=== PATIENT | female | born 1955 | race African-American/Black ===

== ENCOUNTER → 2018-02-21 | Outpatient (CLI) | payer OTHER ==
[2018-02-21 17:02] LABS: Albumin 4.2 g/dL (3.80-4.90); Albumin/Globulin Ratio 1.83 (1.20-2.10); Globulin 2.3 g/dL (2.1-3.7); LDL Cholesterol,Calculated 48.6 mg/dL (0.0-131.0); Potassium 4.3 mmol/L (3.5-5.5); Total Bilirubin 0.4 mg/dL (0.3-1.2); Total Protein 6.5 g/dL (6.2-8.2); VLDL Calculation 22.4 mg/dL (5.00-40.00)
== END | disposition home or self-care (01) ==
LOC: LABWHC1 08:47
PROVIDERS: ATTEND Internal Medicine
DX: E78.5 Hyperlipidemia, unspecified (principal); I10 Essential (primary) hypertension
CPT/HCPCS: 36415; 80053; 80061

== ENCOUNTER → 2021-04-27 | Outpatient (CLI) | payer MEDICARE, OTHER ==
[2021-04-28 00:41] LABS: African American GFR (CKD) 74.1 (60.0-200.0); Anion Gap 12.2 mmol/L (10.00-18.00); Blood Urea Nitrogen 8.4 mg/dL (9.0-27.0); Carbon Dioxide 18.7 mmol/L (20.0-27.5); Non-African American GFR(CKD) 63.9 (60.0-200.0); Potassium 4.4 mmol/L (3.5-5.5)
[2021-04-28 01:04] LABS: HCT 43.6 % (37.2-46.3); HGB 13.9 g/dL (12.0-15.0); MCH 29.6 pg (27.0-32.0); MCHC 31.9 g/dL (32.0-37.0); MCV 92.8 fL (80.0-97.0); Mean Platelet Volume 10.5 fL (9.5-12.2); Platelet Count 418 X 10*3/uL (140-440); RDW 15.2 % (11.5-14.5); WBC 15.26 X 10*3/uL (4.50-10.00)
== END | disposition home or self-care (01) ==
LOC: LABPAT 15:04
PROVIDERS: ATTEND Internal Medicine Cardiovascular Disease
DX: Z01.812 Encounter for preprocedural laboratory examination (principal); R94.39 Abnormal result of other cardiovascular function study
CPT/HCPCS: 36415; 80051; 82565; 84520; 85027

== ENCOUNTER 2021-05-05 06:21 | Day surgery (SDC) | payer MEDICARE, OTHER ==
[2021-05-03 11:29] VITALS: BMI 38.5
[~2021-05-05 06:21] MED LIST: ALPRAZolam 0.25 MG TAB PO PRN; ALPRAZolam 0.5 MG TAB PO PRN; ASPIRIN 325 MG TAB PO STA; ATORVASTATIN 80 MG TAB PO STA; NITROGLYCERIN SL TABS 0.4 MG TAB SUBLINGUAL PRN
[2021-05-05] MEDS ORDERED: SODIUM CHLORIDE 0.9% 1,000 ML IV ONE (06:46)
[2021-05-05] MEDS ORDERED: HEPARIN SODIUM,PORCINE 2,500 UNIT in SODIUM CHLORIDE 0.9% 250 ML IRRIGATION PRN (07:00)
[2021-05-05] MEDS ORDERED: HEPARIN SODIUM,PORCINE 10,000 UNIT in SODIUM CHLORIDE 0.9% 1,000 ML IRRIGATION PRN (07:00)
[2021-05-05] MEDS ORDERED: fentaNYL (PF) 50 MCG/ML 2 ML AMP ONE (07:11)
[2021-05-05 07:18] VITALS: TEMP 99.7
[2021-05-05] MEDS: BENZOCAINE SPRAY 1 CAN MUCOUS MEM ONE ×2 (07:27→07:32)
[2021-05-05] MEDS ORDERED: fentaNYL (PF) 50 MCG/ML 2 ML AMP IVP ONE (07:32)
[2021-05-05] MEDS ORDERED: MIDAZOLAM 2 MG/2 ML VIAL IVP ONE (07:32)
[2021-05-05] MEDS ORDERED: LIDOCAINE 1% INJ 10MG/ML (20 ML MDV) SQ ONE (07:53)
[2021-05-05] MEDS ORDERED: VERAPAMIL SYRINGE (5 MG/10 ML) INTRAARTER ONE (08:04)
[2021-05-05] MEDS ORDERED: HEPARIN SODIUM 1,000 UN/ML (10ML VL) IV ONE (08:05)
[2021-05-05] MEDS ORDERED: IOPAMIDOL-370 125ML BTL INJ ONE (08:14)
[2021-05-05] MEDS ORDERED: IV FLUID CONTINUATION 800 ML IV ONE (08:14)
--- NOTE | 2021-05-05 10:32 | ECHOT ---
TRANSESOPHAGEAL ECHOCARDIOGRAM INDICATION: This is a 66-year-old lady who presented to us with symptoms of shortness of breath, underwent an echocardiogram, stress test and presented to me. She had a reversible perfusion defect involving her anterior wall and moderate mitral regurgitation, due to which she was advised to undergo a transesophageal echo and cardiac catheterization. She was explained risks, benefits and alternatives, understood and accepted. PROCEDURE NOTE: After obtaining informed consent, transesophageal echocardiogram was performed in left lateral position using an Omniplane probe. Local and IV sedation were obtained with 2 mg of Versed and 25 mcg of fentanyl. Color Doppler, 2D and spectral analysis were performed. The patient tolerated the procedure well without any obvious immediate complications. Total sedation time was 8 minutes. FINDINGS: 1. Mitral valve is anatomically normal. There is mild central mitral regurgitation noted. 2. Tricuspid valve shows mild tricuspid regurgitation. 3. Aortic valve is a 3-leaflet valve. There is no evidence of aortic stenosis or regurgitation. 4. Left atrium appears mildly enlarged. 5. Left ventricle has normal size and systolic function. 6. Right atrium and right ventricle appear mildly enlarged. 7. 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 There is no evidence of kolng-cq-qqye shunt. There are mild atherosclerotic changes noted within the aorta. CONCLUSION: Mild mitral regurgitation. Normal LV systolic function. Septum secundum ASD measuring about 1.4 cm. PLAN: Patient will undergo cardiac catheterization. MMODL / IJN: [id number] /
--- NOTE | 2021-05-05 10:38 | CC ---
CARDIAC CATHETERIZATION REPORT INDICATION: Shortness of breath with abnormal stress test. PROCEDURE NOTE: After obtaining informed consent, left heart catheterization and coronary angiogram were performed via the right radial artery. A size 3-1/2 Naseem catheter was used to engage the left coronary. A Camilo catheter was used to engage the right coronary artery. Hemodynamics were obtained with a size 3-1/2 right Naseem. Patient tolerated the procedure well without any obvious immediate complications. She received moderate sedation. Total sedation time was 30 minutes. Using a micropuncture needle, right radial artery access was obtained, and under fluoroscopic guidance catheters and wires were floated into the ascending aorta, where they were exchanged. Five mg of verapamil and 5000 units of heparin were given as per protocol. At the end of the procedure a TR band was applied for hemostasis as per protocol. Adequate oxygen saturations were obtained. FINDINGS: HEMODYNAMICS: Left ventricular end-diastolic pressure is 8 to 10 mm. There is no significant gradient across the aortic valve. LEFT VENTRICULOGRAM: Left ventriculogram was not performed. ANGIOGRAPHIC DATA: Left main coronary artery. Left main coronary artery is a normal-sized vessel and is free of stenosis. It divides into left anterior descending coronary artery and circumflex coronary artery. LAD and its branches, circumflex coronary artery and its branches are free of significant stenosis. Right coronary artery is a large dominant vessel and is free of significant disease. CONCLUSIONS: 1. Normal coronary arteries. 2. Normal left ventricular end-diastolic pressure. PLAN: I reviewed angiographic data with the patient and told her that her stress test is a false-positive stress test. The patient has a septum secundum ASD on the DANIE. Will consider closure of this after discussing this with her in the outpatient setting. MMODL / IJN: [id number] /
[2021-05-05 12:51] VITALS: RESP 16
[2021-05-05] MEDS ORDERED: SODIUM CHLORIDE 0.9% 1,000 ML IV SCH (13:00)
[2021-05-05 13:06] VITALS: BP 113/59; PULSE 74
== END 2021-05-05 13:33 | disposition home or self-care (01) ==
LOC: CATHCVL 06:21
PROVIDERS: ATTEND Internal Medicine Cardiovascular Disease
DX: I08.1 Rheumatic disorders of both mitral and tricuspid valves (principal); Q21.1 Atrial septal defect; R94.39 Abnormal result of other cardiovascular function study; I10 Essential (primary) hypertension; E78.5 Hyperlipidemia, unspecified; Z72.0 Tobacco use; Z88.1 Allergy status to other antibiotic agents; Z88.2 Allergy status to sulfonamides; Z88.8 Allergy status to other drugs, medicaments and biological substances; Z79.899 Other long term (current) drug therapy
CPT/HCPCS: 93312; 93320; 93325; 93458; C1894; J2250; J2001; J3010; J1644; Q9967

== ENCOUNTER → 2021-06-04 | Outpatient (CLI) | payer MEDICARE, OTHER ==
[2021-06-04 14:44] LABS: HCT 43.2 % (37.2-46.3); HGB 13.8 g/dL (12.0-15.0); MCHC 31.9 g/dL (32.0-37.0); MCV 90.8 fL (80.0-97.0); Mean Platelet Volume 10.1 fL (9.5-12.2); NRBC Per 100 WBC 0 /100 WBCS (0.0-0.0); Platelet Count 415 X 10*3/uL (140-440); RBC 4.76 X 10*6/uL (4.10-5.20); RDW 14.6 % (11.5-14.5); WBC 6.79 X 10*3/uL (4.50-10.00)
[2021-06-04 14:54] LABS: African American GFR (CKD) 76.7 (60.0-200.0); Anion Gap 12.7 mmol/L (10.00-18.00); Blood Urea Nitrogen 8.9 mg/dL (9.0-27.0); Carbon Dioxide 20.3 mmol/L (20.0-27.5); Non-African American GFR(CKD) 66.2 (60.0-200.0); Potassium 4.7 mmol/L (3.5-5.5)
[2021-06-05 13:27] LABS: Coronavirus SARS CoV-2 Not Detected (Not Detected)
== END | disposition home or self-care (01) ==
LOC: LABPAT 08:05
PROVIDERS: ATTEND Internal Medicine Interventional Cardiology
DX: Z01.812 Encounter for preprocedural laboratory examination (principal); U07.1 COVID-19; I34.0 Nonrheumatic mitral (valve) insufficiency
CPT/HCPCS: 80051; 82565; 84520; 85027; U0003; U0005

== ENCOUNTER 2021-06-11 11:02 | Day surgery (SDC) | payer MEDICARE, OTHER ==
[2021-06-04 10:20] VITALS: BMI 37.6
[~2021-06-11 11:02] MED LIST changes: -ATORVASTATIN 80 MG TAB PO STA; +CLINDAMYCIN 300 MG in DEXTROSE 5% IN WATER 50 ML IVPB ONE; +HEPARIN SODIUM,PORCINE 10,000 UNIT in SODIUM CHLORIDE 0.9% 1,000 ML IRRIGATION PRN; +HEPARIN SODIUM,PORCINE 2,500 UNIT in SODIUM CHLORIDE 0.9% 250 ML IRRIGATION PRN
[2021-06-11] MEDS: SODIUM CHLORIDE 0.9% 1,000 ML in EMPTY BAG 1 BAG IV SCH ×2 (11:36→20:35)
[2021-06-11] MEDS ORDERED: ASPIRIN 325 MG TAB PO ONE (12:30)
[2021-06-11] MEDS ORDERED: HEPARIN SODIUM 1,000 UN/ML (10ML VL) ONE (13:20)
[2021-06-11] MEDS: CLINDAMYCIN 300 MG in DEXTROSE 5% IN WATER 50 ML IVPB ONE ×4 (13:27→13:33)
[2021-06-11] MEDS ORDERED: IV FLUID CONTINUATION 800 ML IV ONE (13:27)
[2021-06-11] MEDS ORDERED: MIDAZOLAM 2 MG/2 ML VIAL IV ONE (13:28)
[2021-06-11] MEDS ORDERED: LIDOCAINE 1% INJ 10MG/ML (20 ML MDV) SQ ONE (13:28)
[2021-06-11] MEDS ORDERED: fentaNYL (PF) 50 MCG/ML 2 ML AMP ONE (13:34)
[2021-06-11] MEDS ORDERED: HEPARIN SODIUM 1,000 UN/ML (10ML VL) IV ONE (13:38)
[2021-06-11] MEDS: fentaNYL (PF) 50 MCG/ML 2 ML AMP IV ONE ×2 (13:38→14:00)
[2021-06-11] MEDS ORDERED: IOPAMIDOL-370 50ML BTL INJ ONE ×2 (14:06)
[2021-06-11] MEDS ORDERED: CLOPIDOGREL 75 MG TAB ONE (14:12)
[2021-06-11] MEDS ORDERED: CLOPIDOGREL 75 MG TAB PO ONE (14:16)
[2021-06-11] MEDS: SODIUM CHLORIDE 0.9% 1,000 ML IV SCH (14:40)
--- NOTE | 2021-06-11 20:54 | P.PCN ---
Date of Procedure: 06/11/21 Operative Findings: PERCUTANEOUS CLOSURE OF SECONDUM ATRIAL SEPTAL DEFECT (ASD) PERFORMING PHYSICIAN: Delonte Wood MD, [facility] PROCEDURE PERFORMED: 1. Successful percutaneous closure of atrial septal defect (ASD) using 35 mm Amplatzer PFO Occluder with an excellent results and without any residual shunt. 2. Intracardiac echocardiogram imaging. 3. Right atrial angiogram. 4. Ultrasound guided access of the right CFV x2 INDICATION: This is a very pleasant 66-year-old female pt who sees Dr. Monroe. She was diagnosed with right RA and RV enlargement. She underwent transesophageal echocardiogram and that revealed secondum ASD. She was brought today to undergo percutaneous closure of the interatrial septum. APPROACH: Right common femoral vein x2 COMPLICATION: None. LEVEL OF SEDATION: Moderate with sedation length of 46 minutes. PROCEDURE DESCRIPTION: After obtaining informed consent, the patient was brought to the cardiac track laborer. The right common femoral vein was cannulated x2 using micropuncture technique under ultrasound guidance, the micropuncture wire passed easily, then I placed two 8-Montserratian sheath in the right groin. Subsequently I cannulated the Right common femoral vein with the same technique and I placed an 8-Montserratian sheath there as well. At that point, anticoagulation was initiated using heparin and the patient was given a bolus of 5,000 units of heparin IV with continuous ACT monitoring throughout the procedure. After that, the intracardiac echocardiogram probe was advanced through one of the venous sheath all the way to the right atrium where we did interrogate the interatrial septum and identified the ASD which was measured about 35 mm. Also atrial septal defect was identified. Subsequently, I did cross the ASD using 0.035 J-wire with the backup support of multipurpose catheter. The wire was advanced all the way to the left upper pulmonary vein and subsequently the catheter was advanced over the wire to the left upper pulmonary vein. The 0.035 J-wire was pulled out and then I advanced a miranda wire. Subsequently, the multipurpose catheter was withdrawn out and the wire was left in the left upper pulmonary vein. After that, I did prep the Amplatzer PFO occluder under saline. The device was loaded into the truck loader and unloader, which was attached to the sheath. Subsequently, I did exchange my 8-Montserratian sheath into the Shuttle sheath over a 0.035 miranda wire. The sheath was advanced all the way under fluoroscopy guidance to the left atrium. Subsequently, the dilator of the sheath was withdrawn out along with the wire. After that, I did load the Amplatzer occluder under continuous saline flush to the sheath. The device was advanced all the way through the sheath were I did where I did deploy initially the left atrial occluder and then I pulled back the sheath and the left atrial occluder all the way to the interatrial septum and then I deployed the right atrial occluder after that. Subsequently and after interrogation using intracardiac echocardiogram noticed that there was no residual shunt. After interrogation using intracardiac echocardiogram there was no residual shunt and were satisfied with the results. Finally that he the device was released. By the end I did right atrial angiogram. Subsequently I did exchanged the long sheath into short 8-Montserratian sheath. The procedure was completed without any complication. POSTPROCEDURE MANAGEMENT: 1. Dual anti-platelet therapy for 4 weeks then Aspirin for 6 month 2. An echo in 24 hours, in 1 week, in 4 weeks, as well as in 6 months. 5. Follow up with Dr. Monroe
[2021-06-11] MEDS ORDERED: ATORVASTATIN 20 MG TAB PO SCH (21:00)
[2021-06-12] MEDS: SODIUM CHLORIDE 0.9% 1,000 ML IV SCH (05:57)
[2021-06-12] MEDS: SODIUM CHLORIDE 0.9% 1,000 ML in EMPTY BAG 1 BAG IV SCH (05:57)
--- NOTE | 2021-06-12 07:07 | XR ---
EXAMINATION TYPE: XR chest 2V DATE OF EXAM: 06/12/2021 COMPARISON: Chest x-ray 2016. HISTORY: ASD/PFO placement. TECHNIQUE: Frontal and lateral views of the chest are obtained. FINDINGS: New ASD/PFO position satisfactory on 2 views. There is no new suspicious focal air space op acity, pleural effusion, or pneumothorax seen. The cardiac silhouette size remains within normal krishna its. The osseous structures are intact. IMPRESSION: As above.
[2021-06-12 08:10] LABS: Basophils % (A) 0 %; Eosinophils # (A) 0.3 k/uL (0-0.7); Eosinophils % (A) 4 %; HCT 45.3 % (34.0-46.0); Hypochromasia Slight; Lymphocytes # (A) 2.8 k/uL (1.0-4.8); Lymphocytes % (A) 38 %; MCH 29.8 pg (25.0-35.0); MCHC 30.9 g/dL (31.0-37.0); MCV 96.4 fL (80.0-100.0); Mean Platelet Volume 7.5; Monocytes # (A) 0.5 k/uL (0-1.0); Monocytes % (A) 7 %; Neutrophils # (A) 3.6 k/uL (1.3-7.7); Neutrophils % (A) 50 %; Platelet Count 332 k/uL (150-450); RDW 14.6 % (11.5-15.5); WBC 7.2 k/uL (3.8-10.6)
[2021-06-12 08:29] LABS: Calcium 8.2 mg/dL (8.4-10.2); Potassium 4.2 mmol/L (3.5-5.1)
[2021-06-12] MEDS ORDERED: ASPIRIN 325 MG TAB PO SCH (09:00)
[2021-06-12] MEDS ORDERED: CLOPIDOGREL 75 MG TAB PO SCH (09:00)
[2021-06-12] MEDS ORDERED: atenoloL 50 MG TAB PO SCH (09:00)
[2021-06-12 11:44] VITALS: BP 119/72; PULSE 60; RESP 18; TEMP 98
--- NOTE | 2021-06-12 12:55 | ECHOF ---
Referral Reason:Post ASD/PFO Insertion MEASUREMENTS -------- HEIGHT: 157.5 cm WEIGHT: 94.3 kg BP: RVIDd: 3.4 cm (< 3.3) IVSd: 1.1 cm (0.6 - 1.1) LVIDd: 4.2 cm (3.9 - 5.3) LVPWd: 1.3 cm (0.6 - 1.1) IVSs: 1.3 cm LVIDs: 3.6 cm LVPWs: 1.4 cm LA Diam: 4.1 cm (2.7 - 3.8) Ao Diam: 2.3 cm (2.0 - 3.7) AV Cusp: 1.5 cm (1.5 - 2.6) LA Diam: 4.3 cm (2.7 - 3.8) MV EXCURSION: 19.132 mm (> 18.000) MV EF SLOPE: 102 mm/s (70 - 150) EPSS: 0.3 cm MV E Shay: 0.82 m/s MV DecT: 152 ms MV A Shay: 0.67 m/s MV E/A Ratio: 1.23 RAP: 5.00 mmHg RVSP: 50.57 mmHg FINDINGS -------- Sinus rhythm. This was a technically good study. Pt had PFO/ASD closure 06/11/21. The left ventricular size is normal. Left ventricular wall thickness is normal. Overall left vent ricular systolic function is low-normal with, an EF between 50 - 55 %. The right ventricle is normal in size. LA is moderately dilated 34-39 ml/m2 The right atrial size is normal. There is an interatrial closure device in place with evidence of shunt. Trace amount of aortic regurgitation. Tyca-mc-wvvctqkq mitral regurgitation is present. Mild tricuspid regurgitation present. There is moderate pulmonary hypertension. The right ventric ular systolic pressure, as measured by Doppler, is 50.57mmHg. Trace/mild (physiologic) pulmonic regurgitation. The aortic root size is normal. There is a small, generalized pericardial effusion present. CONCLUSIONS -------- 1. Pt had PFO/ASD closure 06/11/21. 2. The left ventricular size is normal. 3. Left ventricular wall thickness is normal. 4. Overall left ventricular systolic function is low-normal with, an EF between 50 - 55 %. 5. The right ventricle is normal in size. 6. LA is moderately dilated 34-39 ml/m2 7. The right atrial size is normal. 8. Trace amount of aortic regurgitation. 9. Xwjl-zg-wjgnoguw mitral regurgitation is present. 10. Mild tricuspid regurgitation present. 11. There is moderate pulmonary hypertension. 12. The right ventricular systolic pressure, as measured by Doppler, is 50.57mmHg. 13. Trace/mild (physiologic) pulmonic regurgitation. 14. The aortic root size is normal. 15. There is a small, generalized pericardial effusion present. APPLICATION RELEASE MANAGER: Kaela Newsome RDCS
--- NOTE | 2021-06-13 10:54 | P.DS ---
Providers Attending physician: Delonte Wood Primary care physician: [facility] [place] Course: The patient is a pleasant 66-year-old gentleman who underwent a few days ago successful percutaneous closure of ASD with an excellent results. He was seen this morning. The right groin is soft and nontender and without any bruises. An echocardiogram was performed on the day of the discharge and revealed stable device with mild residual shunt. The patient is going to be discharged home on dual antiplatelet therapy and he will be seen in the office in a week The patient is going to be seen by Dr. Monroe. An echocardiogram is advised and it would be scheduled. If the shunt "residual" is a small will follow up with the patient only but if the shunt is large patient might need to undergo another device deployment to close the shunt completely. Plan - Discharge Summary Discharge Rx Participant: No New Discharge Prescriptions: New Clopidogrel [Plavix] 75 mg PO DAILY #90 tab Aspirin 325 mg PO DAILY #90 tab Continue LORazepam [Lorazepam] 2 mg PO DAILY PRN PRN Reason: Anxiety Trihexyphenidyl [Artane] 2 mg PO TID atenoloL [Tenormin] 50 mg PO DAILY Montelukast [Singulair] 10 mg PO DAILY OLANZapine 10 mg PO DAILY Loratadine 10 mg PO DAILY Simvastatin [Zocor] 40 mg PO HS Discharge Medication List LORazepam [Lorazepam] 2 mg PO DAILY PRN 11/25/15 [History] Trihexyphenidyl [Artane] 2 mg PO TID 11/25/15 [History] Loratadine 10 mg PO DAILY 05/03/21 [History] Montelukast [Singulair] 10 mg PO DAILY 05/03/21 [History] OLANZapine 10 mg PO DAILY 05/03/21 [History] Simvastatin [Zocor] 40 mg PO HS 05/03/21 [History] atenoloL [Tenormin] 50 mg PO DAILY 05/03/21 [History] Aspirin 325 mg PO DAILY #90 tab 06/12/21 [Rx] Clopidogrel [Plavix] 75 mg PO DAILY #90 tab 06/12/21 [Rx] Follow up Appointment(s)/Referral(s): Lester Monroe MD [STAFF PHYSICIAN] - 1 Week (Please call Monday to make a 1 week follow up appointment) Patient Instructions/Handouts: Atrial Septal Defect Repair (DC) Discharge Disposition: HOME SELF-CARE
== END 2021-06-12 12:51 | disposition home or self-care (01) ==
LOC: CATHCVL 11:02 → 3SCARD 14:45 → CATHCVL 06-12 12:51
PROVIDERS: ATTEND Internal Medicine Interventional Cardiology
DX: Q21.1 Atrial septal defect (principal)
CPT/HCPCS: 93306; 93580; 93662; 86900; 86901; 80048; 85025; 86850; 71046; 36415; C1769 ×4; C1894; C1817; C1760; C1759; J2250; J2001; J3010; J1644; Q9967

== ENCOUNTER → 2022-04-26 | Outpatient (CLI) | payer MEDICARE, OTHER ==
[2022-04-26 18:37] LABS: HCT 42.3 % (37.2-46.3); HGB 13.4 g/dL (12.0-15.0); MCH 27.3 pg (27.0-32.0); MCHC 31.7 g/dL (32.0-37.0); MCV 86.3 fL (80.0-97.0); Mean Platelet Volume 9.9 fL (9.5-12.2); NRBC Per 100 WBC 0 /100 WBCS (0.0-0.0); Platelet Count 462 X 10*3/uL (140-440); RDW 15.7 % (11.5-14.5); WBC 9.34 X 10*3/uL (4.50-10.00)
[2022-04-26 19:03] LABS: Anion Gap 11.9 mmol/L (10.00-18.00); BUN/Creat Ratio 10.71 Ratio (12.00-20.00); Blood Urea Nitrogen 10.1 mg/dL (9.0-27.0); Calcium 9.1 mg/dL (8.7-10.3); Carbon Dioxide 21.7 mmol/L (20.0-27.5); Non-African American GFR(CKD) 62.1 (60.0-200.0); Potassium 4.5 mmol/L (3.5-5.5)
== END | disposition home or self-care (01) ==
LOC: LABWHC1 14:09
PROVIDERS: ATTEND Internal Medicine Cardiovascular Disease
DX: R60.0 Localized edema (principal)
CPT/HCPCS: 36415; 80048; 83880; 84443; 85027

== ENCOUNTER → 2023-05-12 | Outpatient (CLI) | payer MEDICARE, OTHER ==
[2023-05-12 16:04] LABS: ALT 19 U/L (8-44); AST 20 U/L (13-35); Chol/HDL Ratio 2.44 Ratio; LDL Cholesterol,Calculated 54.4 mg/dL (0.0-131.0)
== END | disposition home or self-care (01) ==
LOC: LABWHC1 09:36
PROVIDERS: ATTEND Internal Medicine Cardiovascular Disease
DX: E78.2 Mixed hyperlipidemia (principal)
CPT/HCPCS: 36415; 80061; 84450; 84460

== ENCOUNTER → 2024-06-28 | Outpatient (CLI) | payer MEDICARE, OTHER ==
[2024-06-28 16:30] LABS: ALT 17 U/L (8-44); AST 19 U/L (13-35); Chol/HDL Ratio 2.44 Ratio; LDL Cholesterol,Calculated 63.6 mg/dL (0.0-131.0)
== END | disposition home or self-care (01) ==
LOC: LABWHC1 10:43
PROVIDERS: ATTEND Internal Medicine Cardiovascular Disease
DX: E78.2 Mixed hyperlipidemia (principal)
CPT/HCPCS: 36415; 80061; 84450; 84460